=== PATIENT | male | born 1995 | race African-American/Black ===

== ENCOUNTER 2019-07-11 13:36 | Emergency (ER) | payer MEDICAID ==
[~2019-07-11] VITALS: Ht 175.3 cm; Wt 74.0 kg
[2019-07-11 13:47] VITALS: BP 137/72
== END 2019-07-11 14:39 ==
LOC: ED 14:33
DX: N34.1 Nonspecific urethritis (principal)
CPT/HCPCS: 87491; 87591; 96372; 99283; J0696

== ENCOUNTER 2019-11-26 13:09 | Emergency (ER) | payer MEDICAID ==
[~2019-11-26] VITALS: Ht 172.7 cm; Wt 71.5 kg
[~2019-11-26 13:09] MED LIST: BUPR-173 PO
[2019-11-26] MEDS ORDERED: DEXAMETHASONE 4 MG/ML, 1ML PO ONE (14:00)
[2019-11-26] MEDS ORDERED: DEXAMETHASONE 4 MG/ML, 1ML ONE (14:09)
[2019-11-26 14:15] VITALS: BP 120/67
--- NOTE | 2019-11-26 14:15 | NUR ---
pt medicated per emar, tolerated well. awaiting xray results and dispo.
[2019-11-26] MEDS ORDERED: SODIUM CHLORIDE FLUSH 10ML SYR IVF ONE (15:00)
--- NOTE | 2019-11-26 15:08 | NUR ---
REPORT GIVEN TO [employer]. PT ATTACHED TO SPO2 MONITOR. PIV PLACED, LABS DRAWN. PT TO HAVE CT SCAN, PT UPDATED WITH POC. NADN AT THIS TIME.
[2019-11-26 15:17] LABS: BASOPHILS % (AUTO) 1 % (0-1); EOSINOPHILS # (AUTO) 0.12 x10^3/uL (0-0.4); EOSINOPHILS % (AUTO) 1 % (1-7); LYMPHOCYTES # (AUTO) 1.59 x10^3/uL (1-3.4); LYMPHOCYTES % (AUTO) 15 % (22-44); MD NO; MEAN CORPUSCULAR HEMOGLOBIN 26.7 pg (27.5-34.5); MEAN CORPUSCULAR HGB CONC 31.8 g/dL (33.2-36.2); MEAN CORPUSCULAR VOLUME 84.1 fL (81-97); MONOCYTES # (AUTO) 0.63 x10^3/uL (0.2-0.8); MONOCYTES % (AUTO) 6 % (2-9); NEUTROPHILS # (AUTO) 7.99 x10^3/uL (1.8-6.8); NEUTROPHILS % (AUTO) 77 % (42-75); PLATELET COUNT 224 x10^3/uL (130-400); RED CELL DISTRIBUTION WIDTH 13.7 % (9.4-14.8)
[2019-11-26 15:24] LABS: ALBUMIN 3.5 g/dL (3.4-5.0); ANION GAP 4 mmol/L (5-15); CALCIUM 8.9 mg/dL (8.5-10.1); CHLORIDE 107 mmol/L (98-107); CREATININE 1.25 mg/dL (0.7-1.3)
--- NOTE | 2019-11-26 16:05 | NUR ---
PT TO CT.
[2019-11-26] MEDS ORDERED: OMNIPAQUE 350 MG/ML, 100ML BOTTLE ONE (17:56)
== END 2019-11-26 16:46 | disposition home or self-care (01) ==
LOC: ED 14:30
DX: J02.0 Streptococcal pharyngitis (principal); F17.200 Nicotine dependence, unspecified, uncomplicated
CPT/HCPCS: 36415; 70360; 70491; 80048; 82040; 85025; 99284; J1100; Q9967